=== PATIENT | male | born 2000 | race Caucasian/White ===

== ENCOUNTER 2021-02-13 12:59 | Emergency (ER) | payer BC, SELFPAY ==
[2021-02-13 13:20] VITALS: BP 146/79; PULSE 76; RESP 14; TEMP 37.3; O2SAT 99
--- NOTE | 2021-02-13 13:30 | DI.RAD_ITS ---
Exam(s) XR HAND LT COMPLETE XR WRIST LT COMPLETE EXAM: XR HAND LT COMPLETE CLINICAL HISTORY: trauma, pain in metacarpals TECHNIQUE: COMPARISON: CR,XR XR WRIST LT COMPLETE from 02/13/2021 FINDINGS: Four views of the hand and three views of the wrist were obtained. There is a mildly displaced mildl y comminuted fracture of the distal aspect of the navicular bone. Carpal alignment appears within no rmal limits. No additional fracture seen. IMPRESSION: RADIATION DOSE DELIVERED: Total DLP
--- NOTE | 2021-02-13 14:06 | ED.GENADUL_ITS ---
Discharge Plan Disposition Patient Disposition: HOME Condition: Stable Discharge Details Clinical Impression: Scaphoid fracture of wrist Primary Care Provider: Jessie,Local ED Provider: Zainab Tate Home Meds and New Rx's Prescriptions: No Action No Known Home Meds RF: 0 Discharge Instructions Instructions: Scaphoid Fracture (ED) Additional Instructions: Please return immediately to the emergency department if you develop any new or worsening symptoms, if your condition does not improve as expected, or if you become otherwise concerned. It is extremely important that you call soon as possible to make an appointment to be seen in follow-up for this visit by an orthopedic surgeon. Referrals: Ant Grayson MD [ [facility] STAFF PHYSICIAN] - Discharge Data Discharge Date/Time-TO BE ENTERED AT DEPARTURE: 02/13/21 15:35 Medical Decision Making Mauricio Rivas is a 20-year-old man without reported history of medical problems who presented to the emergency department with left wrist pain after falling on outstretched arm while snowboarding yesterday afternoon. On exa mination patient is well and nontoxic-appearing. There is tenderness to palpation diffusely over the left carpal bones and proximal metacarpals and positive snuffbox tenderness to palpation. Concern for wrist fracture, possible hand fracture, other. Exam/history at this time is not consistent with acute bony pathology of the elbow or forearm, compartment syndrome, emergent vascular injury, neurologic injury emergent trauma to the other extremities/spine/head/thorax/abdomen. Plan for wrist x-rays. X-rays show fracture of the distal scaphoid bone. Plan for thumb spica splint, outpatient follow-up with orthopedics. Splint placed without complication, post splint check reveals exposed digits neurovascularly intact. Sling ordered. Patient reports that he lives in [place] and is currently visiting [place], he states that he is unsure whether he will follow-up in [place] or [place] but requests referral for follow-up care. Patient placed on Ortho list for outpatient follow-up. I had a discussion with Patient regarding return to emergency department precautions, home care, and importance of outpatient follow-up. Pt verbalizes understanding of the plan and is amenable. Patient discharged to home with clear plan for outpatient follow-up. All questions were answered. Disposition decision was made weighing the risks and benefits of hospitalization versus outpatient treatment, the risk for further decompensation, and the patient's wishes. Medical Records Medical records reviewed: Yes I reviewed the patient's medical records. Imaging Data Radiologic Study: Attestation: I personally reviewed and interpreted this imaging study as follows: Radiologist's impression: Exam: XR Left Wrist Exam date and time: 02/13/2021 1:34 PM Age: 20 years old Clinical indication: Other: Trauma, wrist pain TECHNIQUE: Imaging protocol: XR Left wrist. Views: 3 or more views. COMPARISON: CR XR HAND LT COMPLETE 02/13/2021 1:43 PM FINDINGS: Bones/joints: There is a mildly comminuted fracture of the distal end of the scaphoid without significant displacement. No other fractures are noted. Soft tissues: Normal. IMPRESSION: Mildly comminuted fracture of the distal end of the scaphoid. HPI General Mode of arrival: ambulatory . Date/Time Provider Initiated Documentation: 02/13/21 13:00 . Limitations to Documentation: no limitations . Information obtained by: patient, RN notes reviewed and old records reviewed . HPI Narrative: Mauricio Rivas is a 20-year-old man without reported history of medical problems presenting to emergency department with wrist pain. Patient reports that at approximately 330 afternoon yesterday he fell on his outstretched hand while he was snowboarding, injuring his left wrist. He denies any other injury. Patient reports that he has had pain in his wrist since time of injury, worsened by moving his wrist. Pain is unchanged over time. Also reports pain in the back of his hand. Patient reports that he feels otherwise well in his usual state of health. He denies any other pain, numbness, weakness, vomiting, diarrhea, fever, shortness of breath, cough, rash. Has been eating and drinking as usual. Related Data Home Medications Medication Instructions Recorded Confirmed Unknown [No Known Home Meds] 02/13/21 02/13/21 Allergies Allergy/AdvReac Type Severity Reaction Status Date / Time clindamycin Allergy Hives Unverified 02/13/21 13:26 General Stated Complaint: Orthopedic JOSE A: 4 Review of Systems Narrative: Constitutional: denies fevers Eyes: denies eye pain ENT: denies ear pain, dental pain, sore throat Cardiovascular: denies chest pain Respiratory: denies SOB, cough GI: denies abdominal pain, vomiting, diarrhea : denies flank pain MSK: denies back pain, neck pain, myalgias, reports left wrist pain denies any other arthralgias Skin: denies rash, skin wound Neuro: denies headaches, numbness, weakness PFSH All Active Problems (Updated 02/13/21 @ 15:21 by Zainab Tate MD) Scaphoid fracture of wrist (Acute) Social History Smoking/Tobacco Use Status: Never Smoking risk assessment performed?: Yes Alcohol Intake: current Alcohol Intake frequency: a few times a month Substance use type: does not use Exam Narrative Exam Narrative: Constitutional: well and [id number], pleasant, conversing normally HENT: head atraumatic/normocephalic/normal inspection, mucous membranes moist Eyes: conjunctiva normal, sclera normal, pupils 3mm b/l Neck: no stridor, normal ROM, trachea midline Chest: normal inspection Resp: normal work of breathing, speaking full sentences Cardio: normal rate, normal rhythm Skin: warm, dry, normal color, no rash Neuro: alert, not altered, grossly non-focal, normal tone Ext: no edema, left carpal bone and proximal metacarpals diffusely tender to palpation without deformity, positive snuffbox tenderness to palpation, no tenderness palpation of the radius or ulna, supination/pronation intact, no tenderness to the left elbow, no tenderness of the MCP joints, ranging all fingers normally, brisk cap refill of all digits, pain with flexion/extension of the wrist Psych: normal mood, normal affect, normal behavior Course Vital Signs Vital signs: Vital Signs Temperature 37.3 C 02/13/21 13:20 Pulse 76 02/13/21 13:20 Respiratory Rate 14 02/13/21 13:20 Blood Pressure 146/79 H 02/13/21 13:20 Pulse Oximetry 99 02/13/21 13:20 Temperature 37.3 C 02/13/21 13:20 Temperature Source Skin 02/13/21 13:20 Pulse 76 02/13/21 13:20 Respiratory Rate 14 02/13/21 13:20 Respiratory Effort 02/13/21 13:27 Blood Pressure 146/79 H 02/13/21 13:20 Blood Pressure Position Sitting 02/13/21 13:20 Pulse Oximetry 99 02/13/21 13:20 Oxygen Delivery Method Room Air 02/13/21 13:20 Oxygen Flow Rate 0 02/13/21 13:20 Pain Level 9 02/13/21 13:20 Procedures Orthopedic Splinting/Casting Injury #1: Side: left Upper Extremity Injury Location: wrist Upper Extremity Immobilizer: thumb spica PAWSS Have you Been Recently Intoxicated or Drunk Within the Last 30 days?: No Have you Ever Experienced Previous Episodes of Alcohol Withdrawal?: No Have you ever Experienced Withdrawal Seizures?: No Have you ever Experienced Delirium Tremens(DT)s?: No Have you ever undergone Alcohol Rehabilitation Treatment (i.e, inpt ot outpatient treatment programs)?: No Have you ever Experienced Blackouts?: No Have you ever Combined Alcohol with other Downers within the last 90 days?: No Have you ever Combined Alcohol with any other Substance of Abuse during the last 90 days?: No Positive Blood Alcohol level on Presentation? [PCS.BAL]: No Evidence of Increased Autonomic Activity (i.e. HR>120, tremor, sweating, agitation, nausea)?: No Result: 0
--- NOTE | 2021-02-13 14:46 | DI.VRAD_ITS ---
PROCEDURE INFORMATION: Exam: XR Left Hand Exam date and time: 02/13/2021 1:34 PM Age: 20 years old Clinical indication: Other: Trauma, pain in metacarpals TECHNIQUE: Imaging protocol: XR Left hand. Views: 3 or more views. COMPARISON: No relevant prior studies available. FINDINGS: Bones/joints: Normal. Soft tissues: Normal. IMPRESSION: No acute findings. Dictated and Authenticated by: Chris Hinton MD. Ordering:PRISCILLA Lamb MD
--- NOTE | 2021-02-13 14:47 | DI.VRAD_ITS ---
PROCEDURE INFORMATION: Exam: XR Left Wrist Exam date and time: 02/13/2021 1:34 PM Age: 20 years old Clinical indication: Other: Trauma, wrist pain TECHNIQUE: Imaging protocol: XR Left wrist. Views: 3 or more views. COMPARISON: CR XR HAND LT COMPLETE 02/13/2021 1:43 PM FINDINGS: Bones/joints: There is a mildly comminuted fracture of the distal end of the scaphoid without significant displacement. No other fractures are noted. Soft tissues: Normal. IMPRESSION: Mildly comminuted fracture of the distal end of the scaphoid. Dictated and Authenticated by: Chris Hinton MD. Ordering:PRISCILLA Lamb MD
--- NOTE | 2021-02-13 15:26 | NUR.NOTE ---
Faxed a referral per Dr. Zainab Tate for cellulitis with Dr. Garcia for a follow up early next week. Put the referral in the home care administrator's box for follow up.
== END 2021-02-13 15:35 | disposition home or self-care (01) ==
PROVIDERS: Emergency Provider Student in an Organized Health Care Education/Training Program
DX: S62.002A Unspecified fracture of navicular [scaphoid] bone of left wrist, initial encounter for closed fracture (principal); V00.311A Fall from snowboard, initial encounter
CPT/HCPCS: 29125; 99283; 73110; 73130